=== PATIENT | male | born 1990 | race Caucasian/White ===

== ENCOUNTER 2016-08-15 13:18 | Emergency (ER) | payer OTHER ==
[~2016-08-15] VITALS: Ht 182.9 cm; Wt 90.6 kg
[2016-08-15 13:20] VITALS: BP 154/95
[2016-08-15] MEDS ORDERED: CLAR1TAB2 PO (14:19)
[2016-08-15] MEDS ORDERED: PRED20TA PO (14:19)
== END 2016-08-15 14:31 | disposition home or self-care (01) ==
LOC: M ED 14:14
DX: L30.9 Dermatitis, unspecified (principal); Z91.030 Bee allergy status; Z87.891 Personal history of nicotine dependence